=== PATIENT | male | born 1995 | race Caucasian/White ===

== ENCOUNTER → 2023-03-29 | Outpatient (CLI) | payer OTHER ==
--- NOTE | 2023-03-29 15:22 | P.SLEEP ---
History of Present Illness DATE: 03/29/2023 CONSULTATION/NEW PATIENT EVALUATION HISTORY OF PRESENT ILLNESS/SLEEP-WAKE EVALUATION: 28 year old gentleman had been evaluated in the sleep center for possible obstructive sleep apnea hypopnea syndrome. Patient has history of obstructive sleep apnea diagnosed in April 2017, was treatment with CPAP, but CPAP did not work well for him, she stopped treatment many years ago. Patient doesn't have CPAP unit, when [place]. SLEEP SCHEDULE: Usually sleep schedule from 11 PM to 7 AM on weekdays and from midnight until 9 AM on weekend FALLING ASLEEP: No problems with falling asleep. DURING SLEEP: Patient snores and wakes up from sleep with nocturia. Positive history of dry mouth and sweating during the sleep. No history of hypnogogical hallucinations, sleep paralysis, or cataplexy. DURING THE DAY/WAKE STATE: Patient feels sleepiness during the day, has problems with memory, concentration, irritability.. Bradford sleepiness scale is significantly increased to 19. Patient may take 1 nap. PAST MEDICAL HISTORY: Hypertension, anxiety. PAST SURGICAL HISTORY: [place] tooth removed. MEDICATIONS: Losartan 50 mg twice a day, BuSpar 5 mg 3 times a day, duloxetine 180 mg once a day. SOCIAL HISTORY: Positive history of smoking for about 12 pack years, alcohol c onsumption occasional. FAMILY HISTORY: Hypertension, stroke, asthma, diabetes, during the sleep. REVIEW OF SYSTEMS: Snoring, awakenings from sleep, sleepiness during the day. No fevers. No double vision. No recent chest pain. No shortness of breath. No abdominal pain. No bleeding episodes. No blood in urine. No seizure episodes. PHYSICAL EXAMINATION: GENERAL: A pleasant patient without any distress. VITAL SIGNS: BP 115/75 , HR 84 , RR 12 , weight 274.4 pounds, height 5 foot 10.5 inches, body mass index 38.7 . HEENT: PERRLA, EOMI. Evaluation of oropharynx showed tongue protrudes midline, low position of soft palate Mallampati 3, retrognathia 2 mm, wide pillars, short distance between soft palate and posterior pharyngeal wall. NECK: Supple. No JVD. Thyroid is not palpable. 19 inches in circumference. LUNGS: Clear to percussion and to auscultation. Good air exchange. No wheezing or rhonchi. HEART: S1, S2 regular. No murmurs, gallops or rubs. ABDOMEN: Soft and nontender. Bowel sounds are present. No organomegaly appreciated. EXTREMITIES: No clubbing or cyanosis. BONE PULLER: Awake, alert, and oriented x3. Cranial nerves 2 to 7 intact. There is no fasciculation or atrophy noted. No focal deficits observed. ASSESSMENT: 1. Snoring, small oropharyngeal airspace, wide neck 19 inches in circumference, sleepiness Bradford Sleepiness Scale 12, history of obstructive sleep apnea hypopnea syndrome. Obstructive sleep apnea hypopnea syndrome. 2. Obesity, BMI 38.7. 3. Hypertension. 4. Anxiety. PLAN: 1. Polysomnography for evaluation of patient's breathing during sleep. 2. CPAP/BiPAP titration if sleep study confirms obstructive sleep apnea- hypopnea syndrome. 3. Preferable position during sleep on the side. 4. No driving if patient feels any sleepiness. Patient is aware of civil and criminal liability for unsafe driving. 5. Sleep hygiene with regular sleep time for at least 7.5-8 hours. 6. Watching and losing weight. Thank you very much for referring this patient for consultation. Sincerely, Willy Kat MD, PhD, FAASM. Diplomat of [employer], Sleep Medicine Board by [employer] [facility] [place] [facility] [place] Past Medical History Past Medical History: No Reported History History of Any Multi-Drug Resistant Organisms: None Reported Past Surgical History: No Surgical Hx Reported Past Psychological History: Depression Past Alcohol Use History: None Reported Past Drug Use History: Marijuana Medications and Allergies Home Medications Medication Instructions Recorded Confirmed Type No Known Home Medications 01/26/16 01/26/16 History Allergies Allergy/AdvReac Type Severity Reaction Status Date / Time No Known Allergies Allergy Verified 01/26/16 18:06 Sleep Note - Sleep Note Sleep Note: Temperature: Pulse Rate: Respiratory Rate: Blood Pressure: SpO2: Height: Weight: BMI: Neck Circumference:
== END ==
LOC: 3 N SLEEP 14:23
PROVIDERS: ATTEND Internal Medicine
DX: G47.33 Obstructive sleep apnea (adult) (pediatric) (principal); E66.9 Obesity, unspecified; I10 Essential (primary) hypertension; F41.9 Anxiety disorder, unspecified; F17.200 Nicotine dependence, unspecified, uncomplicated; Z68.38 Body mass index [BMI] 38.0-38.9, adult
CPT/HCPCS: 99202

== ENCOUNTER → 2023-11-14 | Outpatient (CLI) | payer OTHER ==
--- NOTE | 2023-11-14 14:15 | CT ---
EXAMINATION TYPE: CT sinus wo con DATE OF EXAM: 11/14/2023 COMPARISON: None HISTORY: Chronic sinusitis CT DLP: [address] of the paranasal sinuses was performed in the axial and coronal planes. Bone and soft tissue settings are submitted. There is complete opacification of all of the paranasal sinuses compatible with severe chronic sinusi tis and/or underlying polyposis. No bony destructive process identified. Obstruction of the bilateral ostiomeatal units. Nasal septum appears mildly deviated from right to left. IMPRESSION: Marked pansinusitis and/or polyposis.
== END | disposition home or self-care (01) ==
LOC: RADCTMAIN 12:38
PROVIDERS: ATTEND Otolaryngology
DX: J32.4 Chronic pansinusitis (principal); J32.9 Chronic sinusitis, unspecified
CPT/HCPCS: 70486